=== PATIENT | male | born 1950 | race Caucasian/White ===

== ENCOUNTER 2017-05-13 12:21 | Emergency (ER) | payer MEDICARE ==
--- NOTE | 2017-05-13 13:38 | DIAGNOSTIC IMAGING REPORT ---
PROCEDURE: XR SHOULDER 2 OR MORE VW-LEFT INDICATION: TRAUMA/INJURY TECHNIQUE: Three views. COMPARISON: None. FINDINGS: There is complete anterior inferior dislocation of the left glenohumeral joint. There is moderate widening of the left acromioclavicular joint suggesting prior resection of the distal clavicle and possible acromioplasty. No evidence of fracture. IMPRESSION: 1. Complete anterior inferior dislocation of the left glenohumeral joint. 2. Findings suggest probable resection of the distal clavicle and prior acromioplasty.
--- NOTE | 2017-05-13 13:41 | DIAGNOSTIC IMAGING REPORT ---
PROCEDURE: XR FOREARM - LEFT INDICATION: TRAUMA/INJURY TECHNIQUE: AP and lateral views. COMPARISON: None. FINDINGS: Splint partially obscures detail. There is an old healed fracture of the distal shaft of the left radius with moderate radial bowing. There is severe arthritic changes of the left elbow joint (partially visualized) and left first metacarpal/greater multangular joint (partially visualized). IMPRESSION: 1. Old healed fracture of the distal shaft of the left radius. 2. Marked arthritic changes of the left elbow and base of the left thumb (is partially visualized).
--- NOTE | 2017-05-13 13:54 | DIAGNOSTIC IMAGING REPORT ---
PROCEDURE: XR HUMERUS - LEFT INDICATION: PAIN TECHNIQUE: Two views COMPARISON: None. FINDINGS: There is complete anterior inferior dislocation of the left glenohumeral joint. There is moderate widening of the left acromioclavicular joint suggesting prior resection of the distal clavicle and possible acromioplasty. No evidence of fracture. IMPRESSION: 1. Complete anterior inferior dislocation of the left glenohumeral joint. 2. Findings suggest probable resection of the distal clavicle and prior acromioplasty. 3. No evidence of fracture.
--- NOTE | 2017-05-13 15:23 | DIAGNOSTIC IMAGING REPORT ---
PROCEDURE: XR SHOULDER 2 OR MORE VW-LEFT INDICATION: Reduction. TECHNIQUE: Three views. COMPARISON: None. FINDINGS: The dislocated left glenohumeral joint has been reduced to near anatomic position. Status post resection of the distal clavicle with marked degenerative changes of the acromion and moderate degenerate change of the left glenohumeral joint. There is elevation of the humeral head consistent with chronic rotator cuff tear. No evidence of fracture. IMPRESSION: 1. Reduction of dislocated left glenohumeral joint (anatomic position). 2. Chronic left rotator cuff tear. 3. Marked arthritic changes of the left shoulder. 4. Findings discussed with Dr. Gary Cerda.
--- NOTE | 2017-05-13 16:37 | DIAGNOSTIC IMAGING REPORT ---
PROCEDURE: XR SHOULDER 1 VIEW - LEFT INDICATION: Shoulder trauma TECHNIQUE: Single axillary view of the left shoulder COMPARISON: Multiple prior radiographs on the same day. FINDINGS: Normal position of the glenohumeral joint in the AP direction. There is slight abduction at the glenohumeral joint beyond neutral. No definite fracture fragments visible. Moderate marginal spurs along the humeral neck. IMPRESSION: 1. No glenohumeral joint dislocation. 2. Moderate glenohumeral joint osteoarthritic change. 3. No visible fracture fragments.
--- NOTE | 2017-05-13 16:57 | ED NURSING NOTES ---
Clinical Report - Nurses [facility] [address] [place] [address] 05/13/2017 12:24 Patient: JUAN F KEITA TRIAGE Triage time 12:29. Acuity: LEVEL 3. Chief Complaint: INJURY TO THE LEFT ARM. 12:30 05/13/17. 12:30 05/13/17. Alert. SEPSIS SCREEN: Sepsis Screen. Negative (no infection suspected/documented). [place]VAR[place]O COMA SCORE: [place] Coma Scale: 15- eyes open spontaneously (4); best verbal response- oriented x 4 (5); best motor response- obeys commands (6). --12:36 Bi Morales R.N. 12:28 05/13/17. BP: 163/94. HR: 67. RR: 18. O2 saturation: 99% on room air. Temp: 97.5 F (oral). Pain level now: 09/10. --12:36 Bi Morales R.N. Weight: 90.7 kg stated. Height/Length: 72 inches Per Patient. BMI: 27.1. --12:29 Bi Morales R.N. Medications Vicodin Oral, as needed. --12:31 Bi Morales R.N. Medication/allergy information source: the patient and patient's family. --12:36 Bi Morales R.N. Allergies None. --12:31 Bi Morales R.N. History Arrived by private vehicle. Historian: patient. Accompanied by family. Primary physician (EDDIE). 12:30 05/13/17. This occurred today. Occurred at home. Mechanism of injury: fell. ( Fell going up stairs onto concrete. This happened at 1100, pt went to [facility] and sent here POV). 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 PAST MEDICAL HX: Tetanus status: unknown. Immunizations: up-to-date. SOCIAL HX: Never smoker. No alcohol use or drug use. No infectious disease exposure. ABUSE ASSESSMENT: No report of abuse. FALL RISK ASSESSMENT: Fall risk assessment completed. No fall risk identified. NUTRITIONAL RISK ASSESSMENT: The nutritional risk assessment revealed no deficiencies. FUNCTIONAL ASSESSMENT: Functional assessment: no impairments noted. LEARNING NEEDS ASSESSMENT: The learning needs assessment revealed no barriers. SKIN INTEGRITY ASSESSMENT: Skin integrity risk assessment completed. No skin integrity risk identified. --12:36 Bi Morales R.N. PROBLEMS: no known problems. ADDITIONAL SURGERIES: Back Surgery. Feet. Knee. Right Hip. Shoulder Surgery. --12:32 Bi Morales R.N. Assessment 12:30 05/13/17. --12:36 Bi Morales R.N. Interventions 12:30 05/13/17. 12:30 05/13/17. ID and allergy band on patient. To treatment room. --12:36 Bi Morales R.N. PHYSICAL ASSESSMENT 12:05/13/17. To room via wheelchair. GENERAL / NEURO / PSYCH: Oriented X 4. Alert. Appears in pain. EXTREMITIES: Capillary refill is less than 2 seconds in the extremities. Extremity pulses are within normal limits. Neuro-vascular status intact to the extremity. Left arm: tenderness (splinted). SKIN: Skin is warm and dry. --12:33 Bi Morales R.N. 12:54 05/13/17. EXTREMITIES: Left shoulder: deformity (1233). --12:54 Bi Morales R.N. NURSING PROGRESS NOTES 12:05/13/17. The plan of care for this patient has been created. Cold pack applied. Extremity elevated. Neuro-vascular extremity check. Patient gowned. Reassurance given. Two patient identifiers checked. Call light placed in reach. Side rails up x 2. Bed placed in lowest position. Brakes of bed on. --12:33 Bi Morales R.N. 12:33 05/13/17. Patient ready for evaluation- chart flagged and notification provided. --12:33 Bi Morales R.N. <<MAXINEKEN ENTRY-- 12:37 05/13/2017 Site #1 started via IV in the right with an 18g angiocath, with aseptic technique and good blood return; one attempt. Blood drawn: rainbow set. Labeled in the presence of the patient and sent to the lab. Saline lock flushed with 10 mL saline. --12:37 Bi Morales R.N. --END STRIKE>> Correction. --12:54 Bi Morales R.N. 12:37 05/13/2017 Site #1 started via IV in the right antecubital space with an 18g angiocath, with aseptic technique and good blood return; one attempt. Blood drawn: rainbow set. Labeled in the presence of the patient and sent to the lab. Saline lock flushed with 10 mL saline. --12:54 Bi Morales R.N. 12:46 05/13/2017 TDAP IM 0.5 mL given. (Lot#: [id number], expiration date: 04/11/2019, Speech Pathologist Assistant: Rapid Pathogen Screening pasteur). Given in the right deltoid. Allergies verified and confirmed 5 rights. Vaccine information statement provided to the patient. --12:46 Bi Morales R.N. 12:53 05/13/2017 Dilaudid (HYDROmorphone HCl PF) IVP 0.5 mg given over 2 minute(s) via site #1. Allergies verified, confirmed 5 rights and sedative warning given to the patient. IV patency established. IV site checked: no pain, redness, or swelling. IV flushed thoroughly pre- and post-medication administration. IVP given by RN. --12:53 Bi Morales R.N. 12:53 05/13/2017 Ativan (LORazepam) IVP 0.5 mg given over 2 minute(s) via site #1. Allergies verified, confirmed 5 rights and sedative warning given to the patient. IV patency established. IV site checked: no pain, redness, or swelling. IV flushed thoroughly pre- and post-medication administration. IVP given by RN. --12:53 Bi Morales R.N. 13:13 05/13/2017 Dilaudid (HYDROmorphone HCl PF) IVP 1 mg given over 2 minute(s) via site #1. Allergies verified, confirmed 5 rights and sedative warning given to the patient. IV patency established. IV site checked: no pain, redness, or swelling. IV flushed thoroughly pre- and post-medication administration. IVP given by RN. --13:13 Bi Morales R.N. 13:36 05/13/17. BP: 152/81. HR: 82. RR: 17. O2 saturation: 95% on room air. --13:37 Bi Morales R.N. 13:37 05/13/17. --13:37 Bi Moralse R.N. 13:37 05/13/17. ( Oral care provided, pt aware he is NPO). --13:37 Bi Morales R.N. late entry -14:22. Cardiac rhythm: normal sinus rhythm. ( ER MD unable to relocate left shoulder, paging Ortho MD). --14:39 Bi Morales R.N. 14:40 05/13/17. Cardiac rhythm: normal sinus rhythm. GENERAL / NEURO / PSYCH: Alert. Oriented X 4. RESPIRATORY: No respiratory distress. CVS: Capillary refill less than 2 seconds. GI / : Denies nausea or vomiting. SKIN: Skin is warm and dry. --14:40 Bi Morales R.N. 14:39 05/13/17. BP: 178/95. HR: 93. RR: 18. O2 saturation: 97% on nasal cannula at 2 liters/minute. End tidal CO2: 28 mmHg. --14:40 Bi Morales R.N. 14:14 05/13/2017 Fentanyl IVP 100 mcg given over 1 minute(s) via site #1. Allergies verified, confirmed 5 rights and sedative warning given to the patient. IV patency established. IV site checked: no pain, redness, or swelling. IV flushed thoroughly pre- and post-medication administration. IVP given by RN. --15:32 Bi Morales R.N. 14:14 05/13/2017 Versed (Midazolam HCl) IVP 2 mg given over 1 minute(s) via site #1. Allergies verified, confirmed 5 rights and sedative warning given to the patient. IV patency established. IV site checked: no pain, redness, or swelling. IV flushed thoroughly pre- and post-medication administration. IVP given by RN. --15:35 Bi Morales R.N. 14:17 05/13/2017 Fentanyl IVP 100 mcg given. via site #1. Allergies verified, confirmed 5 rights and sedative warning given to the patient. IV patency established. IV site checked: no pain, redness, or swelling. IV flushed thoroughly pre- and post-medication administration. IVP given by RN. --15:33 Bi Morales R.N. 14:53 05/13/2017 Fentanyl IVP 100 mcg given over 1 minute(s) via site #1. Allergies verified, confirmed 5 rights and sedative warning given. IV patency established. IV site checked: no pain, redness, or swelling. IV flushed thoroughly pre- and post-medication administration. IVP given by RN. --15:33 Bi Morales R.N. 14:53 05/13/2017 Versed (Midazolam HCl) IVP 1 mg given over 1 minute(s) via site #1. Allergies verified, confirmed 5 rights and sedative warning given to the patient. IV patency established. IV site checked: no pain, redness, or swelling. IV flushed thoroughly pre- and post-medication administration. IVP given by RN. --15:35 Bi Morales R.N. 14:55 05/13/2017 Fentanyl IVP 100 mcg given over 1 minute(s) via site #1. Allergies verified, confirmed 5 rights and sedative warning given to the patient. IV patency established. IV site checked: no pain, redness, or swelling. IV flushed thoroughly pre- and post-medication administration. IVP given by RN. --15:34 Bi Morales R.N. 14:55 05/13/2017 Versed (Midazolam HCl) IVP 1 mg given over 1 minute(s) via site #1. Allergies verified, confirmed 5 rights and sedative warning given to the patient. IV patency established. IV site checked: no pain, redness, or swelling. IV flushed thoroughly pre- and post-medication administration. IVP given by RN. --15:36 Bi Morales R.N. 14:58 05/13/2017 Narcan (Naloxone HCl) IVP 0.4 mg given over 1 minute(s) via site #1. Allergies verified and confirmed 5 rights. IV patency established. IV site checked: no pain, redness, or swelling. IV flushed thoroughly pre- and post-medication administration. IVP given by RN. --15:37 Bi Morales R.N. 14:58 05/13/2017 Romazicon (Flumazenil) IVP 0.2 mg given over 1 minute(s) via site #1. Allergies verified and confirmed 5 rights. IV patency established. IV site checked: no pain, redness, or swelling. IV flushed thoroughly pre- and post-medication administration. IVP given by RN. --15:38 Bi Morales R.N. 15:19 05/13/17. ( 1515-Post reduction x-ray completed). --15:19 Bi Morales R.N. 15:50 05/13/17. GENERAL / NEURO / PSYCH: Alert. Oriented X 4. RESPIRATORY: No respiratory distress. CVS: Capillary refill less than 2 seconds. EXTREMITIES: Neuro-vascular status intact to the extremity. SKIN: Skin is warm and dry. --15:50 Bi Morales R.N. 15:50 05/13/17. ( MD to suture wound). --15:50 Bi Morales R.N. 16:21 05/13/17. ( MD at bedside suturing wound). --16:21 Bi Morales R.N. 16:56 05/13/17. WOUND REPAIR: Wound repair performed by ED physician. Assisted by one nurse. The wound is located on the left eyelid. The wound is clean and linear. Preparation: suture tray set-up with 2% lidocaine with epi. Procedure: wound repaired with sutures (sutures placed by MD). Post-procedure: he was stable, bleeding controlled and dressing applied. ( abx ointment and band aid applied). --16:56 Bi Morales R.N. ( One suture pack used for wound repair). --17:38 Bi Morales R.N. Procedural Sedation Flowsheet 14:05/13/17. Baseline cardiac rhythm: normal sinus rhythm. Diagnosis: dislocated joint, left shoulder. Procedure performed by ED physician and assisted by one nurse (RT at bedside). Allergies: NKDA. Last oral intake by patient was (1000). Patient / family education: explanation of procedure, procedural sedation process, post procedure process, need for ride home and post procedure sedation instructions given to patient and family. Preparation: ID band on patient and consent obtained per patient; order, History and Physical, and meds documented; airway equipment, suction equipment, emergency cart and reversal agents at bedside; pulse oximeter, alarm security or surveillance monitor, NIBP and ETCO2 monitor placed on patient. Patient placed in supine position. Oxygen applied to patient at 2 liter/min. He was assessed immediately prior to procedure. Appropriate to proceed with sedation. (See paper documentation for documentation). --14:06 Bi Morales R.N. 14:04 05/13/17. BP: 135/92. HR: 82. RR: 18. O2 saturation: 100% on nasal cannula at 2 liters/minute. Temp: 98.1 F (oral). End tidal CO2: 28 mmHg. --14:06 Bi Morales R.N. late entry -15:10. (1510-See paper documentation for recovery and intra-procedure). --15:19 Bi Morales R.N. DISPOSITION / DISCHARGE 17:00 05/13/2017 Site #1 removed upon discharge. Catheter intact. --17:00 Bi Morales R.N. 17:01 05/13/17. Condition at departure: improved. The goals identified in the patient's plan of care were met. No learning barriers present. Discharge instructions provided and reviewed with the patient. Reviewed warnings. Reviewed medication(s). Treatments reviewed. Reviewed referral to an orthopedic surgeon. Patient verbalized understanding. Written instructions provided in [place]. The patient was discharged by the physician. He was discharged home and accompanied by family. He left the Emergency Department ambulatory and via private vehicle. Family member driving. FALL RISK ASSESSMENT: Fall risk assessment completed. No fall risk identified. --17:01 Bi Morales R.N. 17:00 05/13/17. BP: 156/80. HR: 89. RR: 18. O2 saturation: 99% on room air. Temp: 98.2 F (oral). --17:01 Bi Morales R.N. Departure time: 17:13 May 13 2017. ( Pt aware to follow up with Ortho MD on Saturday and suture removal for 7 days). --17:14 Bi Morales R.N. Locked/Released at 05/13/2017 17:44 by Bi Morales R.N.
--- NOTE | 2017-05-13 16:57 | ED CLINICAL REPORT ---
Clinical Report - Physicians/Mid Levels [facility] [address] [place] [address] 05/13/2017 12:24 Patient: JUAN F KEITA Time Seen: 12:39 Андрей 12 2016. Arrived- By private vehicle. Historian- patient. Note: (Sent to ER from the [facility] CPT: ER phys charges level 5 plus (#[id number]). HISTORY OF PRESENT ILLNESS Location of injuries- face and left shoulder. Chief Complaint: INJURY TO FACE and LEFT UPPER EXTREMITY (SHOULDER). The injury occurred just prior to arrival. Fell (Patient indicates that he tripped then fell hitting the wall with his head and on the ground with his left shoulder. His was present and there was no loss of consciousness. He had been drinking some alcohol earlier in the day.). Occurred at home. The patient complains of moderate pain. The patient sustained a blow to the head. No neck pain or loss of consciousness. Not dazed. REVIEW OF SYSTEMS No numbness, dizziness, chest pain, difficulty breathing or nausea. No abdominal pain or vomiting. He has had new onset of constant weakness of the left arm (moderate) and left hand (moderate). He sustained skin laceration but has no pain on weight bearing. All systems otherwise negative, except as recorded above. PAST HISTORY Back Surgery. Feet. Knee. Right Hip. Shoulder Surgery. Right and left rotator cuff surgery. Tetanus immunization status is unknown. Problems: no known problems. Medications: Vicodin Oral, as needed. Allergies: None. SOCIAL HISTORY Never smoker. No alcohol use or drug use. ADDITIONAL NOTES The nursing notes have been reviewed. PHYSICAL EXAM Vital Signs: 05/13/2017 12:28 BP: 163/94. HR: 67. RR: 18. O2 saturation: 99%. Temp: 97.5 F. Pain level now: 10/10. Appearance: Alert. Appears to be in pain. Patient in moderate distress. Head: Left eyebrow area: subcutaneous 2.5 cm horizontal and oblique laceration, small abrasion and medium sized ecchymosis of the lateral aspect of the eyebrow. SEE LACERATION PROCEDURE NOTE #1. No puncture wound, foreign body or deformity. Eyes: Pupils equal, round and reactive to light. EOM intact. ENT: No dental injury. Pharynx normal. Neck: Painless ROM. Non-tender. Non-tender. CVS: Heart sounds normal. Pulses normal. Respiratory: Breath sounds normal. Chest nontender. Abdomen: Soft and nontender. Bowel sounds normal. Back: No tenderness. Skin: Skin intact. Skin warm. Normal skin color. Extremities: Left shoulder: moderate tenderness and deformity consistent with a shoulder dislocation located in the anterior and lateral aspect of the shoulder. Limited ROM due to pain. (Radial nerve palsy present with inability to extend wrist, spread fingers or extend at elbow. Pt has loss of sensation over the). No joint effusion. Pelvis stable. No lower extremity edema. Neuro: Oriented X 3. Reflexes normal. (Pt has no wrist extension strength. Has no strength at the triceps. Pt has forearm and hand numbness in the distribution of the radial nerve. Deficits consistent with a proximal radial nerve injury. Axillary nerve function intact.). LABS, X-RAYS, AND EKG Lt Shoulder X-ray: Anterior dislocation of the shoulder. Views: AP with external rotation and AP with internal rotation. Technique: good. The X-rays were independently viewed by me and interpreted contemporaneously by me. Post procedure films: show good alignment (hills sacs lesion appears present.). PROGRESS AND PROCEDURES Procedural Sedation: Indication: Reduction of dislocation of shoulder. Mallampati Classification: Class 2 - tonsillar pillars and uvula hidden by the base of the tongue. Normal airway anatomy. Preparation: consent was obtained and the risks of the procedure, benefits and alternatives were explained to patient. IV established. O2 administered. Placed on pulse oximeter and monitoring specialist. Suction was made available. Medications: Fentanyl IV and Versed IV administered by nurse. Patient status during sedation: was attended constantly, was cooperative, oriented and tranquil and responded only to verbal commands was asleep with sluggish response to stimulation. Vitals were stable. Oxygen saturation levels were normal. The airway was maintained. The recovery was uneventful. Complications: None. Post-procedure: Recovery was uneventful. Sedation and procedure performed by me; intra-service time 1-15 minutes. The patient has no history of an adverse anesthesia reaction or family history of an adverse anesthesia reaction. Reduction of Dislocated Shoulder: IV established. O2 administered. Placed on pulse oximeter and monitoring specialist. Given Fentanyl and Versed. The left shoulder was reduced using external rotation technique. (Reduction not successful. Pt allowed to come up from sedation and consult made with orthopedics.). Laceration Repair: Location: face and left eyebrow. Length: 2.5 cm. Complexity: simple (local anesthesia used and sutured). Wound depth/shape- subcutaneous and irregular. Wound is clean. Contused tissue present. Distal neuro/vascular/tendon status normal. Anesthesia provided using 2% lidocaine with epi. Prepped with Hibiclens. Wound explored, cleansed, irrigated and examined to the base in bloodless field extensively with normal saline. Closure of skin: 5-0 (5 sutures). Post-procedure: he is stable and there are no complications. Bleeding is controlled and neuro-vascular status is intact distal to the wound. Dressing applied. Tetanus immunization given. Course of Care: 15:08 05/13/17. Dr Rebollar here to help with reduction after initial attempt failed. Sedation performed for shoulder reduction by Dr Rebollar. All sedation notes for the second sedation are the same as the first sedation except for respiratory depression that came on after pain stimulus was eliminated by getting joint reduced. His 02 sat dropped to 88% and was given supplemental 02 with sats responding to 99%. Pt was given 0.4 mg Narcan IV and 0.2 mg IV of romazicon with excellent results and pt remained awake for the rest of his recovery from sedation. He did not need oxygen supplementation after the reversal agents given. Shoulder reduction x-ray shows joint in socket but riding high in the socket. 15:53 05/13/17. Dr Rebollar here again to evaluate patient after additional shoulder x-ray. He notes the high riding position of the shoulder and explains that it is due to his prior rotator cuff injury. Pt neurologic deficit was unchanged after the procedure. A splint was placed over the left wrist and sling placed on the left arm. Dr Rebollar felt that the nerve injury was due to compression of the trunk of the brachial plexus that carries the radial nerve. Pt will follow up with Dr Rebollar in 3 days. Patient/family counseled. Disposition: Discharged home in improved condition. CLINICAL IMPRESSION Left anterior shoulder dislocation. 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 No axillary nerve deficit or humerus fracture. Fall on same level by tripping. Single deep laceration to the left periorbital area.No foreign body present. Multiple contusions with soft tissue hematoma and abrasion to the left periorbital area and left shoulder. INSTRUCTIONS Apply ice for 15-20 minutes three times a day for one days followed by moist heat 15-20 minutes two times a day for one weeks until better. Wear simple sling until released. Wear cock-up splint until released. Protect wound and keep wound area clean. Change dressing twice daily. Keep wounds dry. You may wash wounds briefly, then dry. Apply neosporin twice daily. Sutures should be removed in seven days. Warnings: SEDATIVE MEDICATION: You were given sedative medication during your visit. Do not drive or operate dangerous machinery. GENERAL WARNINGS: Return or contact your physician immediately if your condition worsens or changes unexpectedly, if not improving as expected, or if other problems arise. OTC Medications: Acetaminophen (available over the counter): take according to label instructions. Motrin (available over the counter): take according to label instructions. Follow-up: Follow up with your doctor in one week. Call for an appointment. Understanding of the discharge instructions verbalized by patient. Follow-up with: [facility], , [address], , [place], [address] Follow up Saturday in four days. Call for the next available appointment. (Electronically signed by Gary Cerda MD 05/16/2017 22:45) Addenda for NEELAJUAN F VisitID: [id number] Date: 05/13/2017 05/13/2017 18:07 velcro wrist splint applied to left wrist. Arm sling also applied (Electronically signed by Agnes Harman - 05/13/2017 18:07)
--- NOTE | 2017-05-13 16:57 | ED ORDER SUMMARY ---
..... Patient: JUAN F KEITA OrderSheet [facility] VisitID: [id number] [place] [address] 67y, M Registration Date/Time: 05/13/2017 ORDER SHEET Weight: 90.7 kg (stated) Allergies: None GENERAL ORDERS: Humerus Left Urgent (12:39 05/13/2017 JBoardley R.N. per protocol) (Ack 12:41 PWeiler ER Tech1) (13:18 JBoardley R.N.) Forearm Left Urgent (12:39 05/13/2017 JBoardley R.N. per protocol) (Ack 12:41 PWeiler ER Tech1) (13:18 JBoardley R.N.) Shoulder 2V or more Left Urgent (12:42 05/13/2017 JBoardley R.N. per protocol) (Ack 12:44 PWeiler ER Tech1) (13:18 JBoardley R.N.) Shoulder 2V or more Left (Post-reduction) Urgent (15:01 05/13/2017 PWeiler ER Tech1 verbal order read back to Daria ROMAN) (Ack 15:05 PWeiler ER Tech1) (15:19 JBoardley R.N.) - (Axillary view left shoulder.) (15:26 05/13/2017 Daria ROMAN) (15:27 JBoardley R.N.) Splint (UE) (Left) (Velcro - wrist) (16:54 05/13/2017 Daria ROMAN) (16:58 PWeiler ER Tech1) Sling - arm (16:54 05/13/2017 Daria ROMAN) (16:58 PWeiler ER Tech1) MEDICATION ORDERS: Tdap IM 0.5 mL (NOW, per protocol) (12:34 05/13/2017 JBoardley R.N. per protocol) (Ack 12:36 JBoardley R.N.) (12:46 JBoardley R.N.) IV FLUIDS: IV Saline Lock (12:37 05/13/2017 JBoardley R.N. per protocol) (12:37 JBoardley R.N.) Dilaudid IV 0.5 mg (NOW) (12:49 05/13/2017 Daria ROMAN) (12:53 JBoardley R.N.) Ativan IV 0.5 mg (NOW) (12:49 05/13/2017 Daria ROMAN) (12:53 JBoardley R.N.) Dilaudid IV 1 mg (HIGH ALERT MEDICATION) (13:07 05/13/2017 Daria ROMAN) (13:14 JBoardley R.N.) Fentanyl IV 100 mcg (HIGH ALERT MEDICATION, NOW) (15:28 05/13/2017 JBoardley R.N. verbal order read back to Daria ROMAN) (15:32 JBoardley R.N.) Fentanyl IV 100 mcg (HIGH ALERT MEDICATION, NOW) (15:28 05/13/2017 JBoardley R.N. verbal order read back to Daria ROMAN) (15:33 JBoardley R.N.) Fentanyl IV 100 mcg (HIGH ALERT MEDICATION, NOW) (15:29 05/13/2017 JBoardley R.N. verbal order read back to Daria ROMAN) (15:33 JBoardley R.N.) Fentanyl IV 100 mcg (HIGH ALERT MEDICATION, NOW) (15:29 05/13/2017 JBoardley R.N. verbal order read back to Daria ROMAN) (15:34 JBoardley R.N.) Versed IV 2 mg (HIGH ALERT MEDICATION, NOW) (15:30 05/13/2017 JBoardley R.N. verbal order read back to Daria ROMAN) (15:35 JBoardley R.N.) Versed IV 1 mg (HIGH ALERT MEDICATION, NOW) (15:30 05/13/2017 JBoardley R.N. verbal order read back to Daria ROMAN) (15:35 JBoardley R.N.) Versed IV 1 mg (HIGH ALERT MEDICATION, NOW) (15:30 05/13/2017 JBoardley R.N. verbal order read back to Daria ROMAN) (15:36 JBoardley R.N.) Narcan IV 0.4 mg (HIGH ALERT MEDICATION, NOW) (15:31 05/13/2017 Vijay Lugo verbal order read back to Daria ROMAN) (15:37 Vijay AnneN.) Romazicon IV 0.2 mg (NOW) (15:31 05/13/2017 Vijay Willis. verbal order read back to Daria ROMAN) (15:38 Vijay AnneNLuke) ORDER SHEET NOTES: [Electronically signed by Bi Morales R.N. (17:44 05/13/2017)] [Electronically signed by Gary Cerda MD (22:45 05/16/2017)] [Electronically locked/signed by Bi Morales R.N. (17:44 05/13/2017)]
--- NOTE | 2017-05-13 16:57 | ED CLINICAL REPORT ---
Clinical Report - Physicians/Mid Levels [facility] [address] [place] [address] 05/13/2017 12:24 Patient: JUAN F KEITA Time Seen: 12:39 Андрей 12 2016. Arrived- By private vehicle. Historian- patient. Note: (Sent to ER from the [facility] CPT: ER phys charges level 5 plus (#[id number]). HISTORY OF PRESENT ILLNESS Location of injuries- face and left shoulder. Chief Complaint: INJURY TO FACE and LEFT UPPER EXTREMITY (SHOULDER). The injury occurred just prior to arrival. Fell (Patient indicates that he tripped then fell hitting the wall with his head and on the ground with his left shoulder. His was present and there was no loss of consciousness. He had been drinking some alcohol earlier in the day.). Occurred at home. The patient complains of moderate pain. The patient sustained a blow to the head. No neck pain or loss of consciousness. Not dazed. REVIEW OF SYSTEMS No numbness, dizziness, chest pain, difficulty breathing or nausea. No abdominal pain or vomiting. He has had new onset of constant weakness of the left arm (moderate) and left hand (moderate). He sustained skin laceration but has no pain on weight bearing. All systems otherwise negative, except as recorded above. PAST HISTORY Back Surgery. Feet. Knee. Right Hip. Shoulder Surgery. Right and left rotator cuff surgery. Tetanus immunization status is unknown. Problems: no known problems. Medications: Vicodin Oral, as needed. Allergies: None. SOCIAL HISTORY Never smoker. No alcohol use or drug use. ADDITIONAL NOTES The nursing notes have been reviewed. PHYSICAL EXAM Vital Signs: 05/13/2017 12:28 BP: 163/94. HR: 67. RR: 18. O2 saturation: 99%. Temp: 97.5 F. Pain level now: 10/10. Appearance: Alert. Appears to be in pain. Patient in moderate distress. Head: Left eyebrow area: subcutaneous 2.5 cm horizontal and oblique laceration, small abrasion and medium sized ecchymosis of the lateral aspect of the eyebrow. SEE LACERATION PROCEDURE NOTE #1. No puncture wound, foreign body or deformity. Eyes: Pupils equal, round and reactive to light. EOM intact. ENT: No dental injury. Pharynx normal. Neck: Painless ROM. Non-tender. Non-tender. CVS: Heart sounds normal. Pulses normal. Respiratory: Breath sounds normal. Chest nontender. Abdomen: Soft and nontender. Bowel sounds normal. Back: No tenderness. Skin: Skin intact. Skin warm. Normal skin color. Extremities: Left shoulder: moderate tenderness and deformity consistent with a shoulder dislocation located in the anterior and lateral aspect of the shoulder. Limited ROM due to pain. (Radial nerve palsy present with inability to extend wrist, spread fingers or extend at elbow. Pt has loss of sensation over the). No joint effusion. Pelvis stable. No lower extremity edema. Neuro: Oriented X 3. Reflexes normal. (Pt has no wrist extension strength. Has no strength at the triceps. Pt has forearm and hand numbness in the distribution of the radial nerve. Deficits consistent with a proximal radial nerve injury. Axillary nerve function intact.). LABS, X-RAYS, AND EKG Lt Shoulder X-ray: Anterior dislocation of the shoulder. Views: AP with external rotation and AP with internal rotation. Technique: good. The X-rays were independently viewed by me and interpreted contemporaneously by me. Post procedure films: show good alignment (hills sacs lesion appears present.). PROGRESS AND PROCEDURES Procedural Sedation: Indication: Reduction of dislocation of shoulder. Mallampati Classification: Class 2 - tonsillar pillars and uvula hidden by the base of the tongue. Normal airway anatomy. Preparation: consent was obtained and the risks of the procedure, benefits and alternatives were explained to patient. IV established. O2 administered. Placed on pulse oximeter and cardiac cath tech. Suction was made available. Medications: Fentanyl IV and Versed IV administered by nurse. Patient status during sedation: was attended constantly, was cooperative, oriented and tranquil and responded only to verbal commands was asleep with sluggish response to stimulation. Vitals were stable. Oxygen saturation levels were normal. The airway was maintained. The recovery was uneventful. Complications: None. Post-procedure: Recovery was uneventful. Sedation and procedure performed by me; intra-service time 1-15 minutes. The patient has no history of an adverse anesthesia reaction or family history of an adverse anesthesia reaction. Reduction of Dislocated Shoulder: IV established. O2 administered. Placed on pulse oximeter and cardiac cath tech. Given Fentanyl and Versed. The left shoulder was reduced using external rotation technique. (Reduction not successful. Pt allowed to come up from sedation and consult made with orthopedics.). Laceration Repair: Location: face and left eyebrow. Length: 2.5 cm. Complexity: simple (local anesthesia used and sutured). Wound depth/shape- subcutaneous and irregular. Wound is clean. Contused tissue present. Distal neuro/vascular/tendon status normal. Anesthesia provided using 2% lidocaine with epi. Prepped with Hibiclens. Wound explored, cleansed, irrigated and examined to the base in bloodless field extensively with normal saline. Closure of skin: 5-0 (5 sutures). Post-procedure: he is stable and there are no complications. Bleeding is controlled and neuro-vascular status is intact distal to the wound. Dressing applied. Tetanus immunization given. Course of Care: 15:08 05/13/17. Dr Rebollar here to help with reduction after initial attempt failed. Sedation performed for shoulder reduction by Dr Rebollar. All sedation notes for the second sedation are the same as the first sedation except for respiratory depression that came on after pain stimulus was eliminated by getting joint reduced. His 02 sat dropped to 88% and was given supplemental 02 with sats responding to 99%. Pt was given 0.4 mg Narcan IV and 0.2 mg IV of romazicon with excellent results and pt remained awake for the rest of his recovery from sedation. He did not need oxygen supplementation after the reversal agents given. Shoulder reduction x-ray shows joint in socket but riding high in the socket. 15:53 05/13/17. Dr Rebollar here again to evaluate patient after additional shoulder x-ray. He notes the high riding position of the shoulder and explains that it is due to his prior rotator cuff injury. Pt neurologic deficit was unchanged after the procedure. A splint was placed over the left wrist and sling placed on the left arm. Dr Rebollar felt that the nerve injury was due to compression of the trunk of the brachial plexus that carries the radial nerve. Pt will follow up with Dr Rebollar in 3 days. Patient/family counseled. Disposition: Discharged home in improved condition. CLINICAL IMPRESSION Left anterior shoulder dislocation. 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 No axillary nerve deficit or humerus fracture. Fall on same level by tripping. Single deep laceration to the left periorbital area.No foreign body present. Multiple contusions with soft tissue hematoma and abrasion to the left periorbital area and left shoulder. INSTRUCTIONS Apply ice for 15-20 minutes three times a day for one days followed by moist heat 15-20 minutes two times a day for one weeks until better. Wear simple sling until released. Wear cock-up splint until released. Protect wound and keep wound area clean. Change dressing twice daily. Keep wounds dry. You may wash wounds briefly, then dry. Apply neosporin twice daily. Sutures should be removed in seven days. Warnings: SEDATIVE MEDICATION: You were given sedative medication during your visit. Do not drive or operate dangerous machinery. GENERAL WARNINGS: Return or contact your physician immediately if your condition worsens or changes unexpectedly, if not improving as expected, or if other problems arise. OTC Medications: Acetaminophen (available over the counter): take according to label instructions. Motrin (available over the counter): take according to label instructions. Follow-up: Follow up with your doctor in one week. Call for an appointment. Understanding of the discharge instructions verbalized by patient. Follow-up with: [facility], , [address], , [place], [address] Follow up Saturday in four days. Call for the next available appointment. (Electronically signed by Gary Cerda MD 05/16/2017 22:45) Addenda for NEELAJUAN F VisitID: [id number] Date: 05/13/2017 05/13/2017 18:07 velcro wrist splint applied to left wrist. Arm sling also applied (Electronically signed by Agnes Harman - 05/13/2017 18:07)
--- NOTE | 2017-05-13 16:57 | ED ORDER SUMMARY ---
..... Patient: JUAN F KEITA OrderSheet [facility] VisitID: [id number] [place] [address] 67y, M Registration Date/Time: 05/13/2017 ORDER SHEET Weight: 90.7 kg (stated) Allergies: None GENERAL ORDERS: Humerus Left Urgent (12:39 05/13/2017 JBoardley R.N. per protocol) (Ack 12:41 PWeiler ER Tech1) (13:18 JBoardley R.N.) Forearm Left Urgent (12:39 05/13/2017 JBoardley R.N. per protocol) (Ack 12:41 PWeiler ER Tech1) (13:18 JBoardley R.N.) Shoulder 2V or more Left Urgent (12:42 05/13/2017 JBoardley R.N. per protocol) (Ack 12:44 PWeiler ER Tech1) (13:18 JBoardley R.N.) Shoulder 2V or more Left (Post-reduction) Urgent (15:01 05/13/2017 PWeiler ER Tech1 verbal order read back to Daria ROMAN) (Ack 15:05 PWeiler ER Tech1) (15:19 JBoardley R.N.) - (Axillary view left shoulder.) (15:26 05/13/2017 Daria ROMAN) (15:27 JBoardley R.N.) Splint (UE) (Left) (Velcro - wrist) (16:54 05/13/2017 Daria ROMAN) (16:58 PWeiler ER Tech1) Sling - arm (16:54 05/13/2017 Daria ROMAN) (16:58 PWeiler ER Tech1) MEDICATION ORDERS: Tdap IM 0.5 mL (NOW, per protocol) (12:34 05/13/2017 JBoardley R.N. per protocol) (Ack 12:36 JBoardley R.N.) (12:46 JBoardley R.N.) IV FLUIDS: IV Saline Lock (12:37 05/13/2017 JBoardley R.N. per protocol) (12:37 JBoardley R.N.) Dilaudid IV 0.5 mg (NOW) (12:49 05/13/2017 Daria ROMAN) (12:53 JBoardley R.N.) Ativan IV 0.5 mg (NOW) (12:49 05/13/2017 Daria ROMAN) (12:53 JBoardley R.N.) Dilaudid IV 1 mg (HIGH ALERT MEDICATION) (13:07 05/13/2017 Daria ROMAN) (13:14 JBoardley R.N.) Fentanyl IV 100 mcg (HIGH ALERT MEDICATION, NOW) (15:28 05/13/2017 JBoardley R.N. verbal order read back to Daria ROMAN) (15:32 JBoardley R.N.) Fentanyl IV 100 mcg (HIGH ALERT MEDICATION, NOW) (15:28 05/13/2017 JBoardley R.N. verbal order read back to Daria ROMAN) (15:33 JBoardley R.N.) Fentanyl IV 100 mcg (HIGH ALERT MEDICATION, NOW) (15:29 05/13/2017 JBoardley R.N. verbal order read back to Daria ROMAN) (15:33 JBoardley R.N.) Fentanyl IV 100 mcg (HIGH ALERT MEDICATION, NOW) (15:29 05/13/2017 JBoardley R.N. verbal order read back to Daria ROMAN) (15:34 JBoardley R.N.) Versed IV 2 mg (HIGH ALERT MEDICATION, NOW) (15:30 05/13/2017 JBoardley R.N. verbal order read back to Daria ORMAN) (15:35 JBoardley R.N.) Versed IV 1 mg (HIGH ALERT MEDICATION, NOW) (15:30 05/13/2017 JBoardley R.N. verbal order read back to Daria ROMAN) (15:35 JBoardley R.N.) Versed IV 1 mg (HIGH ALERT MEDICATION, NOW) (15:30 05/13/2017 JBoardley R.N. verbal order read back to Daria ROMAN) (15:36 JBoardley R.N.) Narcan IV 0.4 mg (HIGH ALERT MEDICATION, NOW) (15:31 05/13/2017 Vijay Lugo verbal order read back to Daria ROMAN) (15:37 Vijay AnneN.) Romazicon IV 0.2 mg (NOW) (15:31 05/13/2017 Vijay Willis. verbal order read back to Daria ROMAN) (15:38 Vijay AnneNLuke) ORDER SHEET NOTES: [Electronically signed by Bi Morales R.N. (17:44 05/13/2017)] [Electronically signed by Gary Cerda MD (22:45 05/16/2017)] [Electronically locked/signed by Bi Morales R.N. (17:44 05/13/2017)]
--- NOTE | 2017-05-13 17:39 | Consultation Report ---
History Chief Complaint Left shoulder pain History of Present Illness Asked by Dr. Gary Cerda, [facility] ER physician, to assist in the care of this 67-year-old man who reportedly under the influence of alcohol sustained a fall when he tripped on a 6 inch step and landed on his face and dislocated his left shoulder. X-rays showed a subcoracoid dislocation of the shoulder and despite conscious sedation Dr. Cerda was unable to reduce the shoulder dislocation. Past medical history is significant for bilateral rotator cuff repairs in the remote past and patient admits to having limited shoulder function especially active elevation for years. He denies any pre-existing weakness specifically in elbow or wrist or finger extension. He also hit his head and has a laceration over his right eyelid. In addition to the shoulder x- rays which show the dislocation but no fracture he had humerus x-rays and forearm x-rays which show a malunion of a right radial shaft fracture but no fracture or dislocation that appears acute except as above. His is at the bedside. Patient History 1. Rotator cuff arthropathy Social History Patient admits to drinking champagne this morning celebrating his 's relatives leaving after 30 day stay. Medications and Allergies Medications ER physician documentation of medications used for conscious sedation and home medications. Allergies Coded Allergies: No Known Drug Allergy (12/04/05) Uncoded Allergies: Food Allergies: NKA Med Allergies: NKA Physical Exam Vital Signs / I&Os Vital Signs Date Time Temp Pulse Resp B/P Pulse O2 O2 Flow FiO2 Ox Delivery Rate 05/13 1512 4.0 05/13 1433 89 16 99 4.0 General Appearance Alert, Oriented X3, Cooperative, No acute distress, smells of alcohol HEENT bloody laceration over her left lateral eyelid Lungs Normal air movement Extremities there is squaring of the left shoulder contour with well-healed surgical scars and a palpable mass in the subcoracoid area consistent with the humeral head on the left side. He is able to contract his left deltoid, biceps, wrist and finger flexors but not the left triceps, wrist extensors, finger extensors and and I do not appreciate active finger abduction or opposition as well. Skin he has multiple abrasions on his hands and shins but the skin over his left shoulder is intact with a well-healed surgical scar Neurological C also extremity exam above sensation is decreased on the dorsum of the hand as well as the lateral aspect of the forearm that is intact on the lateral upper arm he is able to discern light touch in the median and ulnar nerve distributions on the left side. Psych/Mental Status Mental status normal, Mood normal Other Procedure: After informed verbal consent was obtained from the conscious sedation as provided by the ER physician and she was wrapped around his torso for countertraction under the left axilla and with axial traction on the arm with internal rotation the shoulder is able to be reduced with counter force on the scapula with my unshod heel. A satisfying clunk reduction was appreciated and the contour of the shoulder was restored. After reversal of sedation patient remains able to contract his deltoid and has sensation in the lateral upper arm but still has 0 over 5 triceps, wrist extension and finger and thumb extension strength. Imaging See HPI for prereduction imaging postreduction shows the humeral head is reduced in the glenoid on the axillary view but is high riding and directly under the acromion with degenerative changes in the form of inferior humeral head goat fong osteophyte. There is evidence of prior distal clavicle resection. Assessment and Plan Problem List 1. Closed traumatic subcoracoid dislocation of left shoulder joint Qualifiers Encounter type: initial encounter Qualified Code: S43.015A - Anterior dislocation of left humerus, initial encounter Onset Date 05/13/17 Status Acute Plan Sling, no external roation past neutral, no extension and no overhead lifting. Return to clinic in ~ 1 week. 2. Injury of radial nerve at left upper arm level Qualifiers Encounter type: initial encounter Qualified Code: S44.22XA - Injury of radial nerve at upper arm level, left arm, initial encounter Onset Date 05/13/17 Status Acute Plan He will use a cockup wrist splint to prevent iris flexion contracture and place his fingers in a more functional position. He should return to clinic in 1 week 's time for reexamination if he has a neurapraxia function should be returned by then. If not he likely has an axonotmesis versus neurotmesis. He should be followed clinically and if he does not have return of at least upper triceps function by 6 weeks' time and EMG/nerve conduction velocity baseline examination should be obtained and repeated 6 weeks later to document return of function. If he does not have return of function he should be referred to a shoulder specialist for consideration of further imaging and exploration and possible nerve repair versus grafting although other procedures such as nerve or tendon transfers could be considered at their discretion. Hopefully nerve injury will recover spontaneously as it is most likely due to her depressed direct compression or stretch of the nerve as in a "Saturday night palsy". 3. Rotator cuff arthropathy Qualifiers Laterality: left Qualified Code: M12.812 - Other specific arthropathies, not elsewhere classified, left shoulder Status Chronic Plan rehabilitation
--- NOTE | 2017-05-16 22:46 | ED MED RECONCILIATION SUMMARY ---
Patient: JUAN F KEITA Medication Reconciliation Report [facility] VisitID: [id number] [place] [address] 67y, M Registration Date/Time: 05/13/2017 Weight: 90.7 kg Height/Length: 72 in. BMI: 27.1 ALLERGIES: None The patient's Home Medications are listed below: THE FOLLOWING MEDICATIONS NEED TO BE RECONCILED: Vicodin Oral The source(s) of the original Home Medication information: patient's family member patient The following Medications were given to the patient in the Emergency Department: TDAP [IM] IM 0.5 mL, administered: 05/13/2017 12:46:00 PM Dilaudid [IVP] IVP 0.5 mg, administered: 05/13/2017 12:53:00 PM Ativan [IVP] IVP 0.5 mg, administered: 05/13/2017 12:53:00 PM Dilaudid [IVP] IVP 1 mg, administered: 05/13/2017 1:13:00 PM Fentanyl [IVP] IVP 100 mcg, administered: 05/13/2017 2:14:00 PM Fentanyl [IVP] IVP 100 mcg, administered: 05/13/2017 2:17:00 PM Fentanyl [IVP] IVP 100 mcg, administered: 05/13/2017 2:53:00 PM Fentanyl [IVP] IVP 100 mcg, administered: 05/13/2017 2:55:00 PM Versed [IVP] IVP 2 mg, administered: 05/13/2017 2:14:00 PM Versed [IVP] IVP 1 mg, administered: 05/13/2017 2:53:00 PM Versed [IVP] IVP 1 mg, administered: 05/13/2017 2:55:00 PM Narcan [IVP] IVP 0.4 mg, administered: 05/13/2017 2:58:00 PM Romazicon [IVP] IVP 0.2 mg, administered: 05/13/2017 2:58:00 PM The following Medications were prescribed to the patient: Acetaminophen (available over the counter): take according to label instructions. -- Gary Cerda MD Motrin (available over the counter): take according to label instructions. -- Gary Cerda MD
--- NOTE | 2017-05-16 22:46 | ED MAR SUMMARY ---
..... Medication Administration Record [facility] [address] [place] [address] Patient: JUAN F KEITA Visit ID: [id number] 67y, M Weight: 90.7 kg Height/Length: 72 in BMI: 27.1 ALLERGIES: None Given 12:46 05/13/2017 Bi Morales R.N. Medication Administered: TDAP [IM], Dose: 0.5 mL IM. Medication Ordered: Tdap IM 0.5 mL (NOW, per protocol). Given 12:53 05/13/2017 Bi Morales R.N. Medication Administered: DILAUDID [IVP] (HYDROMORPHONE HCL PF), Dose: 0.5 mg IVP over 2 minute(s), Site: #1 right AC. Medication Ordered: Dilaudid IV 0.5 mg (NOW). Given 12:05/13/2017 Bi Morales R.N. Medication Administered: ATIVAN [IVP] (LORAZEPAM), Dose: 0.5 mg IVP over 2 minute(s), Site: #1 right AC. Medication Ordered: Ativan IV 0.5 mg (NOW). Given 13:05/13/2017 Bi Morales R.N. Medication Administered: DILAUDID [IVP] (HYDROMORPHONE HCL PF), Dose: 1 mg IVP over 2 minute(s), Site: #1 right AC. Medication Ordered: Dilaudid IV 1 mg (HIGH ALERT MEDICATION). Given 14:05/13/2017 Bi Morales R.N. Medication Administered: FENTANYL [IVP], Dose: 100 mcg IVP over 1 minute(s), Site: #1 right AC. Medication Ordered: Fentanyl IV 100 mcg (HIGH ALERT MEDICATION, NOW). Given 14:05/13/2017 Bi Morales R.N. Medication Administered: VERSED [IVP] (MIDAZOLAM HCL), Dose: 2 mg IVP over 1 minute(s), Site: #1 right AC. Medication Ordered: Versed IV 2 mg (HIGH ALERT MEDICATION, NOW). Given 14:05/13/2017 Bi Morales R.N. Medication Administered: FENTANYL [IVP], Dose: 100 mcg IVP, Site: #1 right AC. Medication Ordered: Fentanyl IV 100 mcg (HIGH ALERT MEDICATION, NOW). Given 14:05/13/2017 Bi Morales R.N. Medication Administered: FENTANYL [IVP], Dose: 100 mcg IVP over 1 minute(s), Site: #1 right AC. Medication Ordered: Fentanyl IV 100 mcg (HIGH ALERT MEDICATION, NOW). Given 14:05/13/2017 Bi Morales R.N. Medication Administered: VERSED [IVP] (MIDAZOLAM HCL), Dose: 1 mg IVP over 1 minute(s), Site: #1 right AC. Medication Ordered: Versed IV 1 mg (HIGH ALERT MEDICATION, NOW). Given 14:05/13/2017 Bi Morales R.N. Medication Administered: VERSED [IVP] (MIDAZOLAM HCL), Dose: 1 mg IVP over 1 minute(s), Site: #1 right AC. Medication Ordered: Versed IV 1 mg (HIGH ALERT MEDICATION, NOW). Given 14:05/13/2017 Bi Morales R.N. Medication Administered: FENTANYL [IVP], Dose: 100 mcg IVP over 1 minute(s), Site: #1 right AC. Medication Ordered: Fentanyl IV 100 mcg (HIGH ALERT MEDICATION, NOW). Given 14:05/13/2017 Bi Morales R.N. Medication Administered: NARCAN [IVP] (NALOXONE HCL), Dose: 0.4 mg IVP over 1 minute(s), Site: #1 right AC. Medication Ordered: Narcan IV 0.4 mg (HIGH ALERT MEDICATION, NOW). Given 14:05/13/2017 Bi Morales R.N. Medication Administered: ROMAZICON [IVP] (FLUMAZENIL), Dose: 0.2 mg IVP over 1 minute(s), Site: #1 right AC. Medication Ordered: Romazicon IV 0.2 mg (NOW).
--- NOTE | 2017-05-16 22:46 | ED MED RECONCILIATION SUMMARY ---
Patient: JUAN F KEITA Medication Reconciliation Report [facility] VisitID: [id number] [place] [address] 67y, M Registration Date/Time: 05/13/2017 Weight: 90.7 kg Height/Length: 72 in. BMI: 27.1 ALLERGIES: None The patient's Home Medications are listed below: THE FOLLOWING MEDICATIONS NEED TO BE RECONCILED: Vicodin Oral The source(s) of the original Home Medication information: patient's family member patient The following Medications were given to the patient in the Emergency Department: TDAP [IM] IM 0.5 mL, administered: 05/13/2017 12:46:00 PM Dilaudid [IVP] IVP 0.5 mg, administered: 05/13/2017 12:53:00 PM Ativan [IVP] IVP 0.5 mg, administered: 05/13/2017 12:53:00 PM Dilaudid [IVP] IVP 1 mg, administered: 05/13/2017 1:13:00 PM Fentanyl [IVP] IVP 100 mcg, administered: 05/13/2017 2:14:00 PM Fentanyl [IVP] IVP 100 mcg, administered: 05/13/2017 2:17:00 PM Fentanyl [IVP] IVP 100 mcg, administered: 05/13/2017 2:53:00 PM Fentanyl [IVP] IVP 100 mcg, administered: 05/13/2017 2:55:00 PM Versed [IVP] IVP 2 mg, administered: 05/13/2017 2:14:00 PM Versed [IVP] IVP 1 mg, administered: 05/13/2017 2:53:00 PM Versed [IVP] IVP 1 mg, administered: 05/13/2017 2:55:00 PM Narcan [IVP] IVP 0.4 mg, administered: 05/13/2017 2:58:00 PM Romazicon [IVP] IVP 0.2 mg, administered: 05/13/2017 2:58:00 PM The following Medications were prescribed to the patient: Acetaminophen (available over the counter): take according to label instructions. -- Gary Cerda MD Motrin (available over the counter): take according to label instructions. -- Gary Cerda MD
--- NOTE | 2017-05-16 22:46 | ED DISCHARGE INSTRUCTIONS ---
Patient: JUAN F KEITA General Instructions [facility] VisitID: [id number] [address] [place] [address] 67y, M Registration Date/Time: 05/13/2017 Left anterior shoulder dislocation. 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 No axillary nerve deficit or humerus fracture. Fall on same level by tripping. Single deep laceration to the left periorbital area.No foreign body present. Multiple contusions with soft tissue hematoma and abrasion to the left periorbital area and left shoulder. INSTRUCTIONS Apply ice for 15-20 minutes three times a day for one days followed by moist heat 15-20 minutes two times a day for one weeks until better. Wear simple sling until released. Wear cock-up splint until released. Protect wound and keep wound area clean. Change dressing twice daily. Keep wounds dry. You may wash wounds briefly, then dry. Apply neosporin twice daily. Sutures should be removed in seven days. Warnings: SEDATIVE MEDICATION: You were given sedative medication during your visit. Do not drive or operate dangerous machinery. GENERAL WARNINGS: Return or contact your physician immediately if your condition worsens or changes unexpectedly, if not improving as expected, or if other problems arise. OTC Medications: Acetaminophen (available over the counter): take according to label instructions. Motrin (available over the counter): take according to label instructions. Follow-up: Follow up with your doctor in one week. Call for an appointment. Understanding of the discharge instructions verbalized by patient. Follow-up with: [facility], , [address], , [place], [id number] Follow up Saturday in four days. Call for the next available appointment. ADDITIONAL INFORMATION Mechanical Fall You have had a fall today. It appears that the cause is mechanical. That means that you slipped, tripped or lost your balance. If your fall had been due to fainting or a seizure, further tests would be required. Home Care: Rest today and resume your normal activities when you are feeling back to normal. If you were injured during the fall, follow the advice from your doctor regarding care of your injury. You may use acetaminophen (Tylenol) or ibuprofen (Motrin, Advil) to control pain, unless another pain medicine was prescribed. [NOTE: If you have chronic liver or kidney disease or ever had a stomach ulcer or GI bleeding, talk with your doctor before using these medicines.] Fall Prevention: Was there anything that caused your fall that can be fixed, removed, or replaced? Make your home safe by keeping walkways clear of objects you may trip over. Use non-slip pads under rugs. Do not walk in poorly lit areas. Do not stand on chairs or wobbly ladders. Use caution when reaching overhead or looking upward. This position can cause a loss of balance. Be sure your shoes fit properly, have non-slip bottoms and are in good condition. Be cautious when going up and down curbs, and walking on uneven sidewalks. If your balance is poor, consider using a cane or walker. Stay as active as you can. Balance, flexibility, strength, and endurance all come from exercise. They all play a role in preventing falls. Follow Up with your doctor or as advised by our staff. Get Prompt Medical Attention if any of the following occur: Repeated mechanical falls, or unexplained falls Dizziness, fainting or seizure Severe headache Chest pain or shortness of breath Palpitations (very rapid or very slow or irregular heartbeat) Blood in vomit, stools (black or red color) Weakness of an arm or leg or one side of the face Difficulty with speech or vision Laceration, Face (Suture Or Tape) Alaceration is a cut through the skin. This will require stitches if it is deep. Minor cuts may be treated with surgical tape. Home care The following guidelines will help you care for your laceration at home: If a bandage was applied and it becomes wet or dirty, replace it. Otherwise, leave it in place for the first 24 hours, then change it once a day or as directed. If sutures were used, clean the wound daily: After removing the bandage, wash the area with soap and water. Use a wet cotton swab to loosen and remove any blood or crust that forms. After cleaning, keep the wound clean and dry. Talk with your doctor before applying any antibiotic ointment to the wound. Reapply a fresh bandage. You may remove the bandage to shower as usual after the first 24 hours, but do not soak the area in water (no swimming) until the sutures are removed. If surgical tape was used, keep the area clean and dry. If it becomes wet, blot it dry with a towel. The doctor may prescribe an antibiotic cream or ointment to prevent infection. Do not stop taking this medication until you have have finished the prescribed course or the doctor tells you to stop. The doctor may also prescribe medications for pain. Follow the doctor's instructions for taking these medications.If you have chronic liver or kidney disease or ever had a stomach ulcer or GI bleeding, talk with your doctor before using these medicines. Follow-up care Follow up with your health care provider. Most facial cuts heal in five days with no problem. However, even with proper treatment, a wound infection sometimes occurs. Therefore, check the wound daily for the warning signs listed below. Stitches should not be left in the face for more thanfivedays; otherwise, permanent stitch mayo may form. If surgical tape closures were used, you may remove them yourself afterfivedays, if they have not fallen off by then. When to seek medical care Get prompt medical attention if any of these occur: Increasing pain in the wound Redness, swelling, or pus coming from the wound If sutures come apart or fall out before 5 days If the surgical tape closures fall off before 5 days, or the wound edges reopen Fever of 100.4F (38C) or higher, or as directed by your health care provider Bleeding not controlled by direct pressure Contusion,Soft Tissue You have a CONTUSION, which is a bruise with swelling and some bleeding under the skin. There are no broken bones. This injury takes a few days to a few weeks to heal. Home Care: 1) Keep the injured part elevated to reduce pain and swelling. This is especially important during the first 48 hours. 2) Make an ice pack (ice cubes in a plastic bag, wrapped in a towel) and apply for 20 minutes every 1-2 hours the first day. Continue this 3-4 times a day until the pain and swelling goes away. 3) You may use acetaminophen (Tylenol) or ibuprofen (Motrin, Advil) to control pain, unless another pain medicine was prescribed. [ NOTE : If you have chronic liver or kidney disease or ever had a stomach ulcer or GI bleeding, talk with your doctor before using these medicines.] Follow Up with your doctor or this facility if you are not improving within the next THREE days. [NOTE: If X-rays were taken, they will be reviewed by a radiologist. You will be notified of any new findings that may affect your care.] Get Prompt Medical Attention if any of the following occur: -- Pain or swelling increases -- Injured arm or leg becomes cold, blue, numb or tingly -- Redness, warmth or drainage from the skin Facial Contusion (No Wake-Up) A facial contusion is a bruise with swelling and sometimes bleeding under the skin. The swelling should start to go down within two days. Although there may be no signs of a serious injury at this time, symptoms may appear later which could be a sign of a more serious problem. Therefore, watch for the warning signs below. Home care The following guidelines will help you care for your injury at home: If you have swelling of the face, apply an ice pack (ice cubes in a plastic bag, wrapped in a towel) for 20 minutes every 12 hours until the swelling starts to go down. If you have scrapes or cuts on your face, clean them daily with soap and water. Apply an antibiotic ointment or cream for the first few days to prevent infection. You may use acetaminophen or ibuprofen to control pain, unless another pain medicine was prescribed.If you have chronic liver or kidney disease or ever had a stomach ulcer or GI bleeding, talk with your doctor before using these medicines. Do not use ibuprofen in children under six months of age. For the next 24 hours: Do not take alcohol, sedatives or medicines that make you sleepy. Do not drive or operate machinery. Avoid strenuous activities. No lifting or straining. If you have had any symptoms of aconcussiontoday (nausea, vomiting, dizziness, confusion, headache, memory loss or if you were knocked out), do not return to sports or any activity that could result in another head injury until all symptoms are gone and you have been cleared by your doctor. A second head injury before fully recovering from the first one can lead to serious brain injury. Follow-up care Follow up with your doctor in one week or as directed. Note: Any X-rays or CT scans taken will be reviewed by a radiologist. You will be notified of any new findings that may affect your care. When to seek medical care Get prompt medical attention if any of the following occur: Repeated vomiting Severe or worsening headache or dizziness Unusual drowsiness, or unable to awaken as usual Confusion or change in behavior or speech, memory loss, blurred vision Convulsion (seizure) Increasing scalp or face swelling Redness, warmth or pus from the swollen area Fluid drainage or bleeding from the nose or ears Fever of 100.4F (38C) or higher, or as directed by your health care provider Increasing jaw pain with chewing or increasing pain in the sinuses Nose looks crooked or cannot breathe through your nose after swelling goes down Dislocation: Shoulder (Reduced) Dislocation of the shoulder joint occurs when a strong force tears the ligaments holding the joint together. This allows the bones to move apart and become stuck out of place. Once the joint is aligned again, it will take about six weeks for the ligaments to heal. Since this injury may weaken the ligaments, you are at risk of another dislocation with less force. Therefore, care should be taken to avoid a similar injury in the future. Shoulder dislocation is treated with a shoulder immobilizer (special type of arm sling). This keeps your arm close to your body to prevent a recurrent dislocation while the ligaments heal. After a few weeks, an exercise program may be started. This will gradually restore range of motion and strength at the shoulder and decrease the risk of another dislocation. Home Care: Until your next doctor visit, wear your shoulder immobilizer at all times . Do not take it off at night to sleep. It is possible to dislocate your arm again in your sleep. You may take it off to bathe or dress, but do not move your arm away from your body. Keep your arm in the same position that the sling was holding it in, until you reapply the sling again. During your next visit, ask your doctor how long you should wear the sling. Apply an ice pack (ice cubes in a plastic bag, wrapped in a towel) over the injured area for 20 minutes every 1-2 hours the first day. Continue with ice packs 3-4 times a day for the next two days, then as needed for the relief of pain and swelling. You may use acetaminophen (Tylenol) or ibuprofen (Motrin, Advil) to control pain, unless another pain medicine was prescribed. [NOTE: If you have chronic liver or kidney disease or ever had a stomach ulcer or GI bleeding, talk with your doctor before using these medicines.] No sports or P.E. until cleared by your doctor. Follow Up with your doctor within one week or as advised by our staff. Shoulder immobilizers and slings should not be worn continuously for more than a few weeks or you may lose some [id number] at the shoulder joint. If you have had repeated dislocations of the same shoulder, that means there has been permanent ligament damage. Ask the orthopedic doctor about surgery to prevent another dislocation. Get Prompt Medical Attention if any of the following occur: Another dislocation of your shoulder Increasing swelling or pain in the shoulder or arm Fingers become cold, blue, numb or tingly Sling A sling is designed to support your arm in a position of rest. It is used for injuries of the hand, forearm, upper arm, and shoulder. A shoulder that is immobilized too long can become stiff and lose range of motion. Follow up with your doctor as advised and do not use the sling longer than directed. Home Use: Leave the sling in place as long as directed by your doctor. Unless told otherwise, you may remove it when bathing, dressing, and when you go to sleep. The sling is adjustable. If it becomes loose, adjust it so that your forearm is horizontal (level with the ground). Your hand should be level with the elbow. Wrist Splint: Velcro A splint is designed to prevent movement of the bones, muscles and tendons of the wrist. Velcro wrist splints are used because of their comfort and convenience. In certain conditions, the splint can be removed when bathing or changing clothes. The condition you are being treated for will determine how long you should wear the splint and if it is safe to remove your splint before your next visit. If you are unsure, ask your nurse or doctor. Get Prompt Medical Attention if any of the following occur: -- Increased pain or swelling under the splint or in the hand or fingers -- Fingers or hand becomes cold, blue, numb or tingly Bandage Change If the bandage becomes wet or dirty, replace it. Otherwise, leave it in place for the first 24 hours. Then once a day: After removing the bandage, wash the area with soap and water. Use a wet cotton swab to loosen and remove any blood or crust that forms on the wound. After cleaning, apply a thin layer of antibiotic ointment or cream. Reapply the bandage. You may shower as usual after the first 24 hours. If the bandage is on an arm or leg, cover it with a plastic bag rubber banded at both ends before showering. No tub baths or swimming until the bandage is removed and the wound healed (at least 7 days). Laceration, Face (Suture Or Tape) Alaceration is a cut through the skin. This will require stitches if it is deep. Minor cuts may be treated with surgical tape. Home care The following guidelines will help you care for your laceration at home: If a bandage was applied and it becomes wet or dirty, replace it. Otherwise, leave it in place for the first 24 hours, then change it once a day or as directed. If sutures were used, clean the wound daily: After removing the bandage, wash the area with soap and water. Use a wet cotton swab to loosen and remove any blood or crust that forms. After cleaning, keep the wound clean and dry. Talk with your doctor before applying any antibiotic ointment to the wound. Reapply a fresh bandage. You may remove the bandage to shower as usual after the first 24 hours, but do not soak the area in water (no swimming) until the sutures are removed. If surgical tape was used, keep the area clean and dry. If it becomes wet, blot it dry with a towel. The doctor may prescribe an antibiotic cream or ointment to prevent infection. Do not stop taking this medication until you have have finished the prescribed course or the doctor tells you to stop. The doctor may also prescribe medications for pain. Follow the doctor's instructions for taking these medications.If you have chronic liver or kidney disease or ever had a stomach ulcer or GI bleeding, talk with your doctor before using these medicines. Follow-up care Follow up with your health care provider. Most facial cuts heal in five days with no problem. However, even with proper treatment, a wound infection sometimes occurs. Therefore, check the wound daily for the warning signs listed below. Stitches should not be left in the face for more thanfivedays; otherwise, permanent stitch mayo may form. If surgical tape closures were used, you may remove them yourself afterfivedays, if they have not fallen off by then. When to seek medical care Get prompt medical attention if any of these occur: Increasing pain in the wound Redness, swelling, or pus coming from the wound If sutures come apart or fall out before 5 days If the surgical tape closures fall off before 5 days, or the wound edges reopen Fever of 100.4F (38C) or higher, or as directed by your health care provider Bleeding not controlled by direct pressure You have been given the following additional information: Fall, Mechanical Laceration, Face (Suture Or Tape) Contusion, Soft Tissue Facial Contusion, No Wakeup Dislocation: Shoulder (Reduced) Sling Wrist Splint, Velcro Dressing Change Laceration, Face (Suture Or Tape) (Electronically signed by Gary Cerda MD 05/16/2017 22:45)
--- NOTE | 2017-05-16 22:46 | ED MAR SUMMARY ---
..... Medication Administration Record [facility] [address] [address] Patient: JUAN F KEITA Visit ID: [id number] 67y, M Weight: 90.7 kg Height/Length: 72 in BMI: 27.1 ALLERGIES: None Given 12:46 05/13/2017 Bi Morales R.N. Medication Administered: TDAP [IM], Dose: 0.5 mL IM. Medication Ordered: Tdap IM 0.5 mL (NOW, per protocol). Given 12:53 05/13/2017 Bi Morales R.N. Medication Administered: DILAUDID [IVP] (HYDROMORPHONE HCL PF), Dose: 0.5 mg IVP over 2 minute(s), Site: #1 right AC. Medication Ordered: Dilaudid IV 0.5 mg (NOW). Given 12:05/13/2017 Bi Morales R.N. Medication Administered: ATIVAN [IVP] (LORAZEPAM), Dose: 0.5 mg IVP over 2 minute(s), Site: #1 right AC. Medication Ordered: Ativan IV 0.5 mg (NOW). Given 13:05/13/2017 Bi Morales R.N. Medication Administered: DILAUDID [IVP] (HYDROMORPHONE HCL PF), Dose: 1 mg IVP over 2 minute(s), Site: #1 right AC. Medication Ordered: Dilaudid IV 1 mg (HIGH ALERT MEDICATION). Given 14:05/13/2017 Bi Morales R.N. Medication Administered: FENTANYL [IVP], Dose: 100 mcg IVP over 1 minute(s), Site: #1 right AC. Medication Ordered: Fentanyl IV 100 mcg (HIGH ALERT MEDICATION, NOW). Given 14:05/13/2017 Bi Morales R.N. Medication Administered: VERSED [IVP] (MIDAZOLAM HCL), Dose: 2 mg IVP over 1 minute(s), Site: #1 right AC. Medication Ordered: Versed IV 2 mg (HIGH ALERT MEDICATION, NOW). Given 14:05/13/2017 Bi Morales R.N. Medication Administered: FENTANYL [IVP], Dose: 100 mcg IVP, Site: #1 right AC. Medication Ordered: Fentanyl IV 100 mcg (HIGH ALERT MEDICATION, NOW). Given 14:05/13/2017 Bi Morales R.N. Medication Administered: FENTANYL [IVP], Dose: 100 mcg IVP over 1 minute(s), Site: #1 right AC. Medication Ordered: Fentanyl IV 100 mcg (HIGH ALERT MEDICATION, NOW). Given 14:05/13/2017 Bi Morales R.N. Medication Administered: VERSED [IVP] (MIDAZOLAM HCL), Dose: 1 mg IVP over 1 minute(s), Site: #1 right AC. Medication Ordered: Versed IV 1 mg (HIGH ALERT MEDICATION, NOW). Given 14:05/13/2017 Bi Morales R.N. Medication Administered: VERSED [IVP] (MIDAZOLAM HCL), Dose: 1 mg IVP over 1 minute(s), Site: #1 right AC. Medication Ordered: Versed IV 1 mg (HIGH ALERT MEDICATION, NOW). Given 14:05/13/2017 Bi Morales R.N. Medication Administered: FENTANYL [IVP], Dose: 100 mcg IVP over 1 minute(s), Site: #1 right AC. Medication Ordered: Fentanyl IV 100 mcg (HIGH ALERT MEDICATION, NOW). Given 14:05/13/2017 Bi Morales R.N. Medication Administered: NARCAN [IVP] (NALOXONE HCL), Dose: 0.4 mg IVP over 1 minute(s), Site: #1 right AC. Medication Ordered: Narcan IV 0.4 mg (HIGH ALERT MEDICATION, NOW). Given 14:05/13/2017 Bi Morales R.N. Medication Administered: ROMAZICON [IVP] (FLUMAZENIL), Dose: 0.2 mg IVP over 1 minute(s), Site: #1 right AC. Medication Ordered: Romazicon IV 0.2 mg (NOW).
== END 2017-05-13 17:13 | disposition home or self-care (01) ==
LOC: ED SRH 12:21
DX: S43.015A Anterior dislocation of left humerus, initial encounter (principal); S44.8X2A Injury of other nerves at shoulder and upper arm level, left arm, initial encounter; S01.112A Laceration without foreign body of left eyelid and periocular area, initial encounter; S40.012A Contusion of left shoulder, initial encounter; W01.198A Fall on same level from slipping, tripping and stumbling with subsequent striking against other object, initial encounter; Y93.89 Activity, other specified; Y92.009 Unspecified place in unspecified non-institutional (private) residence as the place of occurrence of the external cause; Z23 Encounter for immunization